=== PATIENT | male | born 1975 | race African-American/Black ===

== ENCOUNTER 2016-05-05 08:32 | Emergency (ER) | payer OTHER ==
[2016-05-05] MEDS ORDERED: diphenhydrAMINE INJ 50MG/ML VIAL (J1200) As Ordered ONE (09:57)
[2016-05-05] MEDS ORDERED: METOCLOPRAMIDE 10 MG TAB As Ordered ONE (09:57)
[2016-05-05] MEDS ORDERED: KETOROLAC 30 MG/ML VIAL (J1885) As Ordered ONE (09:57)
[2016-05-05] MEDS ORDERED: OXYCODONE/APAP 5MG/325MG(BULK) 1 TAB TAB As Ordered ONE (10:26)
--- NOTE | 2016-05-05 10:36 | EDDOCDS ---
Physician Documentation [facility] Name: Yury Chaves Age: 41 yrs Sex: Male : 1975 Arrival Date: 05/05/2016 Time: 08:32 Bed 12 Private MD: Disposition: 05/05/16 10:05 Discharged to Home/Self Care. Impression: Migraine. - Condition is Stable. - Discharge Instructions: Migraine Headache. - Prescriptions for Fioricet 50- 300-40 mg Oral Capsule - take 1 capsule by ORAL route every 8 hours As needed MDD: 6 tabs; 8 capsule. - Medication Reconciliation, Local Pharmacy Hours form. - Follow up: [facility] [place]; When: Call to arrange an appointment; Reason: Continuance of care. - Problem is new. - Symptoms have improved. Historical: - Allergies: No known drug Allergies; - Home Meds: 1. Oral diabetic med 2. med for BP - PMHx: Hypertension; Diabetes - NIDDM: controlled; - PSHx: none; - Social history: Smoking status: Patient states was never smoker of tobacco. No barriers to communication noted, The patient speaks fluent Maori, Speaks appropriately for age. - Family history: Not pertinent. - : The pt / caregiver states he / she is not on anticoagulants. Home medication list is obtained from the patient. - Exposure Risk Screening:: None identified. Vital Signs: 05/05 08:49 BP 125 / 82; Pulse 87; Resp 20; Temp 98.2(O); Pulse Ox 96% on R/A; Weight 120.2 kg / jlf 265 lbs; Height 6 ft. 7 in. (200.66 cm); Pain 5/10; 10:29 Pain 1/10; pml 10:32 BP 131 / 95; Pulse 72; Resp 18; Temp 97.6; Pulse Ox 98% on R/A; Pain 1/10; pml 08:49 Body Mass Index 29.85 (120.20 kg, 200.66 cm) jlf MDM: 09:35 Financial registration complete. mm15 09:49 ketorolac 30 mg IM once ordered. fg 09:49 Metoclopramide 5 mg PO once ordered. fg 09:49 diphenhydrAMINE 25 mg IM once ordered. fg 09:49 oxyCODONE-acetaminophen 5 mg-325 mg 1 tabs PO once ordered. fg 09:50 oxyCODONE-acetaminophen 4 pack 5 mg-325 mg 1 packets PO once; Dispense with pt, take as fg per instruction on package ordered. : [facility] Payment Agreement was scanned into [employer] and attached to record. mm15 Administered Medications: 09:49 Not Given (Duplicate Order): oxyCODONE-acetaminophen 5 mg-325 mg 1 tabs PO once fg 10:04 Drug: ketorolac 30 mg [ketorolac 30 mg/mL (1 mL) injection solution (1 mL)] Route: IM; pml Site: right deltoid; 10:29 Follow up: Pain 04/16 Adult; Response: Pain is decreased pml 10:04 Drug: Metoclopramide 5 mg [metoclopramide 10 mg tablet (0.5 tabs)] Route: PO; pml 10:04 Drug: diphenhydrAMINE 25 mg [diphenhydramine 50 mg/mL injection solution (0.5 mL)] pml Route: IM; Site: left deltoid; 10:33 Drug: oxyCODONE-acetaminophen 4 pack 1 packets [oxycodone-acetaminophen 5 mg-325 mg pml tablet (1 tabs)] {Co-Signature: hs1 (Christie Larsen RN).} Route: PO; Signatures: Rosa Maria Willis RN RN kmg1 Navin Poe RN RN Lizzy Carreon RN RN pml Quinn Lema mm15 Whitney Hale MD MD Christie Larsen RN hs1 The chart was reviewed and I authenticate all verbal orders and agree with the evaluation and treatment provided.Attachments: [facility] Payment Agreement mm15 MTDD
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
--- NOTE | 2016-05-07 11:36 | EDDOCDS ---
Physician Documentation [facility] Name: Yury Chaves Age: 41 yrs Sex: Male : 1975 Arrival Date: 05/05/2016 Time: 08:32 Bed 12 Private MD: Disposition: 05/05/16 10:05 Discharged to Home/Self Care. Impression: Migraine. - Condition is Stable. - Discharge Instructions: Migraine Headache. - Prescriptions for Fioricet 50- 300-40 mg Oral Capsule - take 1 capsule by ORAL route every 8 hours As needed MDD: 6 tabs; 8 capsule. - Medication Reconciliation, Local Pharmacy Hours form. - Follow up: [facility] [place]; When: Call to arrange an appointment; Reason: Continuance of care. - Problem is new. - Symptoms have improved. Historical: - Allergies: No known drug Allergies; - Home Meds: 1. Oral diabetic med 2. med for BP - PMHx: Hypertension; Diabetes - NIDDM: controlled; - PSHx: none; - Social history: Smoking status: Patient states was never smoker of tobacco. No barriers to communication noted, The patient speaks fluent Thai, Speaks appropriately for age. - Family history: Not pertinent. - : The pt / caregiver states he / she is not on anticoagulants. Home medication list is obtained from the patient. - Exposure Risk Screening:: None identified. Vital Signs: 05/05 08:49 BP 125 / 82; Pulse 87; Resp 20; Temp 98.2(O); Pulse Ox 96% on R/A; Weight 120.2 kg / jlf 265 lbs; Height 6 ft. 7 in. (200.66 cm); Pain 5/10; 10:29 Pain 1/10; pml 10:32 BP 131 / 95; Pulse 72; Resp 18; Temp 97.6; Pulse Ox 98% on R/A; Pain 1/10; pml 08:49 Body Mass Index 29.85 (120.20 kg, 200.66 cm) jlf MDM: 09:35 Financial registration complete. mm15 09:49 ketorolac 30 mg IM once ordered. fg 09:49 Metoclopramide 5 mg PO once ordered. fg 09:49 diphenhydrAMINE 25 mg IM once ordered. fg 09:49 oxyCODONE-acetaminophen 5 mg-325 mg 1 tabs PO once ordered. fg 09:50 oxyCODONE-acetaminophen 4 pack 5 mg-325 mg 1 packets PO once; Dispense with pt, take as fg per instruction on package ordered. :59 [facility] Payment Agreement was scanned into [employer] and attached to record. mm15 21:35 T-Sheet-- Draft Copy was scanned into [employer] and attached to record. klr Administered Medications: 09:49 Not Given (Duplicate Order): oxyCODONE-acetaminophen 5 mg-325 mg 1 tabs PO once fg 10:04 Drug: ketorolac 30 mg [ketorolac 30 mg/mL (1 mL) injection solution (1 mL)] Route: IM; pml Site: right deltoid; 10:29 Follow up: Pain 04/16 Adult; Response: Pain is decreased pml 10:04 Drug: Metoclopramide 5 mg [metoclopramide 10 mg tablet (0.5 tabs)] Route: PO; pml 10:04 Drug: diphenhydrAMINE 25 mg [diphenhydramine 50 mg/mL injection solution (0.5 mL)] pml Route: IM; Site: left deltoid; 10:33 Drug: oxyCODONE-acetaminophen 4 pack 1 packets [oxycodone-acetaminophen 5 mg-325 mg pml tablet (1 tabs)] {Co-Signature: hs1 (Christie Larsen RN).} Route: PO; Signatures: Rosa Maria Willis RN RN kmg1 Navin Poe RN RN Lizzy Carreon RN RN pml Quinn Lema mm15 Whitney Hale MD MD fg Redder, Kathie klr Hannah Sherrill RN hs1 The chart was reviewed and I authenticate all verbal orders and agree with the evaluation and treatment provided.Attachments: :59 [facility] Payment Agreement mm15 21:35 T-Sheet-- Draft Copy klr Chart Complete MTDD
--- NOTE | 2016-05-07 11:36 | EDDOCDS ---
Physician Documentation [facility] Name: Yury Chaves Age: 41 yrs Sex: Male : 1975 Arrival Date: 05/05/2016 Time: 08:32 Bed 12 Private MD: Disposition: 05/05/16 10:05 Discharged to Home/Self Care. Impression: Migraine. - Condition is Stable. - Discharge Instructions: Migraine Headache. - Prescriptions for Fioricet 50- 300-40 mg Oral Capsule - take 1 capsule by ORAL route every 8 hours As needed MDD: 6 tabs; 8 capsule. - Medication Reconciliation, Local Pharmacy Hours form. - Follow up: [facility] [place]; When: Call to arrange an appointment; Reason: Continuance of care. - Problem is new. - Symptoms have improved. Historical: - Allergies: No known drug Allergies; - Home Meds: 1. Oral diabetic med 2. med for BP - PMHx: Hypertension; Diabetes - NIDDM: controlled; - PSHx: none; - Social history: Smoking status: Patient states was never smoker of tobacco. No barriers to communication noted, The patient speaks fluent Croatian, Speaks appropriately for age. - Family history: Not pertinent. - : The pt / caregiver states he / she is not on anticoagulants. Home medication list is obtained from the patient. - Exposure Risk Screening:: None identified. Vital Signs: 05/05 08:49 BP 125 / 82; Pulse 87; Resp 20; Temp 98.2(O); Pulse Ox 96% on R/A; Weight 120.2 kg / jlf 265 lbs; Height 6 ft. 7 in. (200.66 cm); Pain 5/10; 10:29 Pain 1/10; pml 10:32 BP 131 / 95; Pulse 72; Resp 18; Temp 97.6; Pulse Ox 98% on R/A; Pain 1/10; pml 08:49 Body Mass Index 29.85 (120.20 kg, 200.66 cm) jlf MDM: 09:35 Financial registration complete. mm15 09:49 ketorolac 30 mg IM once ordered. fg 09:49 Metoclopramide 5 mg PO once ordered. fg 09:49 diphenhydrAMINE 25 mg IM once ordered. fg 09:49 oxyCODONE-acetaminophen 5 mg-325 mg 1 tabs PO once ordered. fg 09:50 oxyCODONE-acetaminophen 4 pack 5 mg-325 mg 1 packets PO once; Dispense with pt, take as fg per instruction on package ordered. :[facility] Payment Agreement was scanned into [employer] and attached to record. mm15 21:35 T-Sheet-- Draft Copy was scanned into [employer] and attached to record. klr Administered Medications: 09:49 Not Given (Duplicate Order): oxyCODONE-acetaminophen 5 mg-325 mg 1 tabs PO once fg 10:04 Drug: ketorolac 30 mg [ketorolac 30 mg/mL (1 mL) injection solution (1 mL)] Route: IM; pml Site: right deltoid; 10:29 Follow up: Pain 04/16 Adult; Response: Pain is decreased pml 10:04 Drug: Metoclopramide 5 mg [metoclopramide 10 mg tablet (0.5 tabs)] Route: PO; pml 10:04 Drug: diphenhydrAMINE 25 mg [diphenhydramine 50 mg/mL injection solution (0.5 mL)] pml Route: IM; Site: left deltoid; 10:33 Drug: oxyCODONE-acetaminophen 4 pack 1 packets [oxycodone-acetaminophen 5 mg-325 mg pml tablet (1 tabs)] {Co-Signature: hs1 (Christie Larsen RN).} Route: PO; Signatures: Rosa Maria Willis RN RN kmg1 Navin Poe RN RN Lizzy Carreon RN RN pml Quinn Lema mm15 Whitney Hale MD MD fg Redder, Kathie klr Hannah Sherrill RN hs1 The chart was reviewed and I authenticate all verbal orders and agree with the evaluation and treatment provided.Attachments: :[facility] Payment Agreement mm15 21:35 T-Sheet-- Draft Copy klr Chart Complete MTDD
== END 2016-05-05 10:35 | disposition home or self-care (01) ==
LOC: M ED 08:32
DX: G43.909 Migraine, unspecified, not intractable, without status migrainosus (principal); E11.9 Type 2 diabetes mellitus without complications; I10 Essential (primary) hypertension; Z79.899 Other long term (current) drug therapy
CPT/HCPCS: 96372; 99283; J1200; J1885